=== PATIENT | male | born 1990 | race Hispanic/Latino ===

== ENCOUNTER 2020-08-17 15:02 | Emergency (ER) | payer SELFPAY ==
[2020-08-17 15:25] LABS: BASOPHILS % (AUTO) 0.4 % (0.0-5.0); EOSINOPHILS % (AUTO) 0.8 % (0.0-8.0); HEMATOCRIT 41.4 % (42-54); LYMPHOCYTES % (AUTO) 19.9 % (21.0-51.0); MEAN CORPUSCULAR HEMOGLOBIN 28.5 pg (27.0-33.0); MEAN CORPUSCULAR HGB CONC 34.3 g/dL (32.0-36.0); NEUTROPHILS % (AUTO) 65.5 % (40.0-77.0); PLATELET COUNT (AUTO) 248 K/uL (130-400); RED BLOOD CELL COUNT(AUTO) 4.99 MIL/uL (4.50-6.20); RED CELL DISTRIBUTION WIDTH 11.2 % (11.0-15.5); WHITE BLOOD COUNT (AUTO) 7.6 K/uL (4.8-10.8)
[2020-08-17 15:32] LABS: APPEARANCE,URINE Clear (CLEAR); BILIRUBIN,URINE Negative (NEGATIVE); COLOR,URINE Yellow (YELLOW); GLUCOSE, URINE (UA) TRACE mg/dL (NEGATIVE); KETONES,URINE Trace mg/dL (NEGATIVE); LEUKOCYTE ESTERASE ,URINE Negative (NEGATIVE); NITRATE,URINE Negative (NEGATIVE); OCCULT BLOOD,URINE Negative (NEGATIVE); PH,URINE 5.5 (5.0-8.0); PROTEIN,URINE POS 1+ mg/dL (NEGATIVE)
[2020-08-17 15:39] LABS: AMPHET/METH SCREEN,URINE NEGATIVE (NEGATIVE); BARBITURATE SCREEN, URINE NEGATIVE (NEGATIVE); BENZODIAZEPINES SCREEN,URINE POSITIVE (NEGATIVE); CANNABINOID SCREEN,URINE POSITIVE (NEGATIVE); COCAINE SCREEN,URINE POSITIVE (NEGATIVE); OPIATE SCREEN,URINE NEGATIVE (NEGATIVE); PHENCYCLIDINE SCREEN,URINE NEGATIVE (NEGATIVE)
[2020-08-17 15:39] LABS: CREATININE 1.1 mg/dL (0.5-1.5); POTASSIUM 3.9 mmol/L (3.5-5.1)
[2020-08-17 15:40] LABS: BACTERIA,URINE Rare /HPF (None Seen); RBC,URINE 0-1 /HPF (0-1); SQUAMOUS EPITHELIAL CELL,UR Rare /HPF (0-2); WBC,URINE 0-1 /HPF (0-1)
[2020-08-17 15:42] LABS: MUCUS,URINE Rare LPF (None Seen)
[2020-08-17 15:45] LABS: ALBUMIN 3.4 g/dL (3.5-5.0); BILIRUBIN,TOTAL 0.8 mg/dL (0.2-1.0); TOTAL PROTEIN, SERUM 6.9 g/dL (6.0-8.3)
[2020-08-17] MEDS ORDERED: SODIUM CHLORIDE 0.9% 1000ML 1,000 ML IV ONE (17:52)
[2020-08-17] MEDS ORDERED: LORAZEPAM 2 MG/ML 1 ML VIAL ONE (17:57)
== END 2020-08-17 19:37 | disposition home or self-care (01) ==
LOC: EDH 15:02
DX: R11.2 Nausea with vomiting, unspecified (principal); R10.84 Generalized abdominal pain; I10 Essential (primary) hypertension; Z71.51 Drug abuse counseling and surveillance of drug abuser
CPT/HCPCS: 36415; 74176; 80053; 80305; 81001; 83690; 85025; 96361 ×2; 96374; 99284; J2060; J7030

== ENCOUNTER 2020-09-29 17:08 | Inpatient (IN) | payer SELFPAY ==
[~2020-09-29] VITALS: Ht 190.5 cm; Wt 90.9 kg
[2020-09-29 17:10] VITALS: BP 141/84
[2020-09-29 17:57] LABS: BASOPHILS % (AUTO) 0.4 % (0.0-5.0); HEMATOCRIT 37.2 % (42-54); LYMPHOCYTES % (AUTO) 21.1 % (21.0-51.0); MEAN CORPUSCULAR HEMOGLOBIN 26.3 pg (27.0-33.0); MEAN CORPUSCULAR HGB CONC 33.3 g/dL (32.0-36.0); MONOCYTES % (AUTO) 11.8 % (3.0-13.0); NEUTROPHILS % (AUTO) 65.4 % (40.0-77.0); PLATELET COUNT (AUTO) 277 K/uL (130-400); RED BLOOD CELL COUNT(AUTO) 4.71 MIL/uL (4.50-6.20); RED CELL DISTRIBUTION WIDTH 12.3 % (11.0-15.5); WHITE BLOOD COUNT (AUTO) 7.1 K/uL (4.8-10.8)
[2020-09-29 18:09] LABS: CREATININE 1.1 mg/dL (0.5-1.5); POTASSIUM 3.5 mmol/L (3.5-5.1)
[2020-09-29 18:13] LABS: ALBUMIN 3.3 g/dL (3.5-5.0); BILIRUBIN,TOTAL 1.3 mg/dL (0.2-1.0)
[2020-09-29 18:27] LABS: APPEARANCE,URINE Clear (CLEAR); BILIRUBIN,URINE Negative (NEGATIVE); COLOR,URINE Dark Yellow (YELLOW); GLUCOSE, URINE (UA) Negative (NEGATIVE); KETONES,URINE Trace mg/dL (NEGATIVE); LEUKOCYTE ESTERASE ,URINE Trace (NEGATIVE); NITRATE,URINE Negative (NEGATIVE); OCCULT BLOOD,URINE Negative (NEGATIVE); PH,URINE 5.5 (5.0-8.0); PROTEIN,URINE POS 2+ mg/dL (NEGATIVE)
[2020-09-29 18:34] LABS: AMPHET/METH SCREEN,URINE NEGATIVE (NEGATIVE); BARBITURATE SCREEN, URINE NEGATIVE (NEGATIVE); BENZODIAZEPINES SCREEN,URINE NEGATIVE (NEGATIVE); CANNABINOID SCREEN,URINE POSITIVE (NEGATIVE); COCAINE SCREEN,URINE NEGATIVE (NEGATIVE); OPIATE SCREEN,URINE NEGATIVE (NEGATIVE); PHENCYCLIDINE SCREEN,URINE NEGATIVE (NEGATIVE)
[2020-09-29 18:35] LABS: BACTERIA,URINE Few /HPF (None Seen); MUCUS,URINE Moderate LPF (None Seen); RBC,URINE None Seen /HPF (0-1)
[2020-09-29] MEDS ORDERED: LORAZEPAM 2 MG/ML 1 ML VIAL IVP ONE (18:45)
[2020-09-29 18:53] LABS: CREATINE KINASE, TOTAL 28 U/L (21-232)
[2020-09-29] MEDS ORDERED: LORAZEPAM 2 MG/ML 1 ML VIAL ONE (18:53)
[2020-09-29 19:01] LABS: THYROID STIMULATING HORMONE < 0.01 uIU/mL (0.36-3.74)
[2020-09-29] MEDS ORDERED: 0.9%NACL 500ML 500 ML IV SCH (19:15)
[2020-09-29] MEDS ORDERED: METOPROLOL TARTRATE 1 MG/ML 5ML VIAL IV ONE (19:30)
[2020-09-29] MEDS ORDERED: LACTULOSE 20 GM/30 ML UDCUP PO PRN (21:45)
[2020-09-29] MEDS ORDERED: ONDANSETRON 4MG INJ IV PRN (21:45)
[2020-09-29] MEDS ORDERED: DIPHENHYDRAMINE HCL 25 MG CAPSULE PO PRN (21:45)
[2020-09-29] MEDS ORDERED: NITROGLYCERIN 0.4 MG SL TAB SL PRN (21:45)
[2020-09-29] MEDS ORDERED: HYDRALAZINE 20MG/ML VIAL IV PRN (21:45)
[2020-09-29] MEDS ORDERED: ACETAMINOPHEN 325 MG TAB PO PRN (21:45)
[2020-09-29] MEDS ORDERED: APAP-CODEINE 300/30MG TAB PO PRN ×2 (21:45)
[2020-09-29] MEDS ORDERED: GUAIFENESIN-DM 200/20 MG 10 ML PO PRN (21:45)
[2020-09-29 21:47] VITALS: BP 141/83
[2020-09-30] VITALS (7 sets, daily range): BP systolic 125–163; BP diastolic 74–99
[2020-09-30] MEDS ORDERED: SOLU-MEDROL 125MG VIAL IVP SCH (06:30)
[2020-09-30] MEDS: METHIMAZOLE 10 MG TAB PO SCH ×5 (06:30→21:37)
[2020-09-30] MEDS: PROPRANOLOL HCL 20 MG TAB PO SCH ×3 (07:03→21:37)
[2020-09-30] MEDS ORDERED: METOPROLOL TARTRATE 25 MG TAB PO SCH (09:00)
[2020-09-30] MEDS: FAMOTIDINE 20MG VIAL IV SCH ×2 (09:34→21:37)
[2020-09-30] MEDS: ENOXAPARIN SODIUM 40 MG/0.4 ML SYRINGE SQ SCH (09:35)
[2020-09-30] MEDS ORDERED: LOSA100T58 PO (10:17)
[2020-10-01 00:16] VITALS: BP 135/72
[2020-10-01 04:16] VITALS: BP 140/80
[2020-10-01] MEDS: PROPRANOLOL HCL 20 MG TAB PO SCH ×2 (06:19→14:42)
[2020-10-01 06:34] LABS: BASOPHILS % (AUTO) 0.1 % (0.0-5.0); EOSINOPHILS % (AUTO) 1.6 % (0.0-8.0); HEMATOCRIT 31.8 % (42-54); LYMPHOCYTES % (AUTO) 13.3 % (21.0-51.0); MEAN CORPUSCULAR HEMOGLOBIN 25.7 pg (27.0-33.0); MEAN CORPUSCULAR VOLUME 77.9 fL (79-99); MONOCYTES % (AUTO) 11.4 % (3.0-13.0); NEUTROPHILS % (AUTO) 73.3 % (40.0-77.0); PLATELET COUNT (AUTO) 218 K/uL (130-400); RED BLOOD CELL COUNT(AUTO) 4.08 MIL/uL (4.50-6.20); RED CELL DISTRIBUTION WIDTH 12.1 % (11.0-15.5)
[2020-10-01 07:03] LABS: ALANINE AMINOTRANSFERASE 67 U/L (12-78); ALBUMIN 3.1 g/dL (3.5-5.0); ASPARTATE AMINOTRANSFERASE 25 U/L (10-37); BILIRUBIN,TOTAL 0.7 mg/dL (0.2-1.0); CARBON DIOXIDE 26 mmol/L (21-32); CHLORIDE 106 mmol/L (101-111); CREATININE 0.8 mg/dL (0.5-1.5); GLOMERULAR FILTR. RATE CALC 120 mL/min (>60); GLUCOSE,RANDOM 115 mg/dL (70-105); POTASSIUM 3.9 mmol/L (3.5-5.1); SODIUM SERUM 141 mmol/L (136-145); TOTAL PROTEIN, SERUM 6.1 g/dL (6.0-8.3); UREA NITROGEN, BLOOD 25 mg/dL (7-18)
[2020-10-01 07:05] LABS: THYROID STIMULATING HORMONE < 0.01 uIU/mL (0.36-3.74)
[2020-10-01 07:56] VITALS: BP 150/92
[2020-10-01] MEDS ORDERED: PROP80TA4 PO (08:44)
[2020-10-01] MEDS ORDERED: METHI10 PO (08:44)
[2020-10-01] MEDS: FAMOTIDINE 20MG VIAL IV SCH (09:37)
[2020-10-01] MEDS: ENOXAPARIN SODIUM 40 MG/0.4 ML SYRINGE SQ SCH (09:37)
[2020-10-01] MEDS: METHIMAZOLE 10 MG TAB PO SCH ×2 (09:37→14:42)
[2020-10-01 11:40] VITALS: BP 139/88
[2020-10-01 16:00] VITALS: BP 129/82
== END 2020-10-01 18:00 | disposition home or self-care (01) | DRG 645 ==
LOC: EDH 17:08 → EDHIP 17:09 → 3CH 09-30 04:47
PROVIDERS: ADMIT Internal Medicine; ATTEND Internal Medicine
DX: E05.90 Thyrotoxicosis, unspecified without thyrotoxic crisis or storm (principal); I10 Essential (primary) hypertension; F12.90 Cannabis use, unspecified, uncomplicated; F41.9 Anxiety disorder, unspecified; K58.9 Irritable bowel syndrome, unspecified; Z79.899 Other long term (current) drug therapy
CPT/HCPCS: 36415; 76536; 80053; 80305; 81001; 82550; 83690; 84439; 84443; 84445; 84481; 85025; G0378; J1650; J2060; J2930; J3490

== ENCOUNTER 2024-09-26 09:38 | Emergency (ER) | payer BC ==
[~2024-09-26] VITALS: Ht 190.5 cm; Wt 90.7 kg
[~2024-09-26 09:38] MED LIST: METH-1037 PO; PROP80TA4 PO
--- NOTE | 2024-09-26 10:02 | NUR ---
BLOOD AND BLOOD CULTURES SENT OUT
[2024-09-26 10:16] LABS: BASOPHILS # (AUTO) 0.03 K/uL (0.00-0.20); BASOPHILS % (AUTO) 0.5 % (0.0-5.0); EOSINOPHILS # (AUTO) 0.02 K/uL (0.00-0.70); EOSINOPHILS % (AUTO) 0.3 % (0.0-8.0); HEMATOCRIT 48.5 % (42-54); IMMATURE GRANULOCYTE ABSOLUTE 0.02 K/uL (0-1); LYMPHOCYTES # (AUTO) 0.9 K/uL (1.0-4.8); LYMPHOCYTES % (AUTO) 14.6 % (21.0-51.0); MEAN CORPUSCULAR HEMOGLOBIN 29.4 pg (27.0-33.0); MEAN CORPUSCULAR HGB CONC 34.8 g/dL (32.0-36.0); MEAN CORPUSCULAR VOLUME 84.5 fL (79-99); MONOCYTES # (AUTO) 0.8 K/uL (0.1-1.0); MONOCYTES % (AUTO) 12.3 % (3.0-13.0); NEUTROPHILS # (AUTO) 4.6 K/uL (1.8-7.7); PLATELET COUNT (AUTO) 204 K/uL (130-400); RED BLOOD CELL COUNT(AUTO) 5.74 MIL/uL (4.50-6.20); RED CELL DISTRIBUTION WIDTH 12.3 % (11.0-15.5); WHITE BLOOD COUNT (AUTO) 6.4 K/uL (4.8-10.8)
[2024-09-26 10:18] LABS: APPEARANCE,URINE CLEAR (CLEAR); BILIRUBIN,URINE NEGATIVE (NEGATIVE); COLOR,URINE LIGHT-YELLOW (YELLOW); GLUCOSE, URINE (UA) NEGATIVE (NEGATIVE); KETONES,URINE NEGATIVE (NEGATIVE); LEUKOCYTE ESTERASE ,URINE NEGATIVE Leu/uL (NEGATIVE); NITRATE,URINE NEGATIVE (NEGATIVE); OCCULT BLOOD,URINE NEGATIVE (NEGATIVE); PROTEIN,URINE 10 mg/dL (NEGATIVE); UROBILINOGEN,URINE 0.2 mg/dL (0.2-1.0)
[2024-09-26] MEDS: acetaMINOPHEN 500 MG TABLET PO ONE (10:19)
[2024-09-26] MEDS: ketOROlac 15MG/ML VIAL (15MG/ML) IV ONE (10:19)
[2024-09-26] MEDS: 0.9%NACL 1000ML 2,721 ML IV ONE (10:23)
[2024-09-26 10:24] LABS: ADD UA MICROSCOPIC YES
[2024-09-26 10:29] LABS: CREATININE 1.3 mg/dL (0.5-1.3); POTASSIUM 3.2 mmol/L (3.5-5.1)
[2024-09-26 10:31] LABS: INR 0.97 (0.85-1.15); PROTHROMBIN TIME 10.3 SEC (9.6-11.6)
[2024-09-26 10:32] LABS: PARTIAL THROMBOPLASTIN TIME 30.1 SEC (26.3-35.5)
[2024-09-26 10:33] LABS: SQUAMOUS EPITHELIAL CELL,UR RARE /HPF (0-2)
[2024-09-26 10:43] LABS: MAGNESIUM 1.9 mg/dL (1.80-2.40); THYROID STIMULATING HORMONE 0.34 uIU/mL (0.36-3.74)
[2024-09-26 10:48] LABS: B-TYPE NATRIURETIC PEPTIDE 191 pg/mL (0-100)
[2024-09-26 11:07] LABS: COVID19 (SARS ANTIGEN RAPID) PRESUMPTIVE NEGATIVE (NEGATIVE); INFLUENZA TYPE A Negative For Type A (NEGATIVE); INFLUENZA TYPE B Negative For Type B (NEGATIVE)
[2024-09-26 11:19] VITALS: TEMP 98.5
--- NOTE | 2024-09-26 11:24 | HMCIMG ---
CHEST 1VW HISTORY: Cough COMPARISON: 03/03/2018 FINDINGS: A frontal projection of the chest was obtained. Left lung pulmonary infiltrates are seen. The heart is borderline enlarged. Degenerative changes are seen No evidence of aortic calcification is seen. IMPRESSION: 1. Left lung pulmonary infiltrates.
[2024-09-26] MEDS ORDERED: AZIT250T9 PO (11:39)
[2024-09-26] MEDS ORDERED: AMOX1TAB16 PO (11:39)
--- NOTE | 2024-09-26 11:40 | ERN ---
General Chief Complaint: Weakness Stated Complaint: WEAKNESS, N/V, ABD PAIN Time Seen by MD: 09:41 History of Present Illness Initial Comments 34-year-old male who presents for body aches chills fever cough and nausea for the last 72 hours. Patient reports he went to [facility] [place], afterwards he came home and started with a body aches. For the last three days he has had persistent symptoms. He has tried [id number] Tylenol Motrin. Denies headache. Denies vision changes. He reports feeling chills and co nsistent tremors. Nausea. Mild cough that is nonproductive. No sore throat. No vomiting or diarrhea. He does have a history of Graves disease, not currently medicated because he says has been under control recently. Otherwise no medical conditions, no sick contacts, no surgical history. Allergies: Coded Allergies: No Known Allergies (Unverified Allergy, Unknown, 08/17/20) Home Meds Active Scripts Propranolol HCl (Propranolol HCl) 80 Mg Tablet, 80 MG PO BID for 30 Days, #60 TAB Prov:ANGELO ROSENBAUM Jr., MD 10/01/20 Methimazole (Tapazole) 10 Mg Tab, 10 MG PO TID for 30 Days, #90 TAB Prov:ANGELO ROSENBAUM Jr., MD 10/01/20 Past Medical History Past Medical History: Hypertension, Hyperthyroid, IBS Medical History Other: GRAVES DISEASE Past Surgical History: None Social History Social History: Negative, Lives with family ROS Dictation CONSTITUTIONAL: Fever body aches EENT: No eye pain, no blurred vision, no tearing, no double vision, no ear pain, no ear discharge, no nose pain, no nasal congestion, no throat pain, no throat swelling, no mouth pain. RESPIRATORY: Cough CARDIOVASCULAR: No chest pain, no edema, no palpitations, no syncope. GASTROINTESTINAL/ABDOMINAL: No abdominal pain, no constipation, no diarrhea, no nausea, no vomiting. GENITOURINARY: No abnormal discharge, no dysuria, no frequent urination, no hematuria. No complaints of pain in the genitals. MUSCULOSKELETAL: No back pain, no gout, no joint pain, no joint swelling, no muscle pain, no muscle stiffness, no neck pain. INTEGUMENTARY: No change in color, no change in hair/nails, no dryness, no lesion, no lumps, no rash. NEUROLOGICAL/PSYCH: No anxiety, not depressed, no emotional problem, no headache, no numbness, no pre-existing deficit, no history of seizures, no tremors, no weakness. HEMATOLOGIC/LYMPHATIC: Not anemic, no history of blood clots, no apparent bleeding, no bruising, glands not swollen. All Systems Negative, Except as Noted. Physical Exam Physical Exam Dictation VITAL SIGNS: Reviewed. GENERAL APPEARANCE: Alert, oriented x3, no acute distress. HEAD AND FACE: Non-traumatic. EYES: PERRL, pink conjunctivas, eyelid no trauma, anterior chamber clear. EARS: Pinnas intact and no signs of trauma or erythema. Ear canals clear and no discharge. TMs no erythema. NOSE: No discharge, no bleeding. OROPHARYNX: Mouth normal, teeth no caries, tongue pink. Pharynx clear, no erythema. Tonsils no exudates, no abscesses noted. Mucous membrane moist. NECK: Supple, non-tender, no thyromegaly, no masses, no JVD, no bruits. BREAST: Deferred. CHEST: No tenderness, no crepitus, no paradoxical movement, no retractions. LUNGS: Clear, well-ventilated, symmetric, no rales, no wheezing, no rhonchi, no stridor, good breath sounds bilaterally. HEART: Regular rate, regular rhythm, no murmur, no gallops. VASCULAR: No peripheral edema. ABDOMEN: Soft, positive bowel sounds, nondistended, no guarding, nontender, no rebound, no masses no hepatomegaly, no splenomegaly, no Ellison's sign, no hernias. RECTAL: Deferred. GENITAL: Deferred. NEUROLOGICAL: Normal speech, gross motor function intact, gross sensory function intact. MUSCULOSKELETAL: Neck nontender, full range of motion, back nontender, full range of motion. EXTREMITIES: Nontender, full range of motion. SKIN: Color pink, dry, no turgor, no rash, no lacerations, no abrasions, no contusions. LYMPHATICS: Deferred. Results Laboratory and Microbiology Lab and Micro Result Laboratory Tests Test 09/26/24 10:00 09/26/24 10:04 09/26/24 10:05 White Blood Count 6.4 K/uL (4.8-10.8) Red Blood Count 5.74 MIL/uL (4.50-6.20) Hemoglobin 16.9 g/dL (14.0-18.0) Hematocrit 48.5 % (42-54) Mean Corpuscular Volume 84.5 fL (79-99) Mean Corpuscular Hemoglobin 29.4 pg (27.0-33.0) Mean Corpuscular Hemoglobin Concent 34.8 g/dL (32.0-36.0) Red Cell Distribution Width 12.3 % (11.0-15.5) Platelet Count 204 K/uL (130-400) Mean Platelet Volume 11.3 fL (7.5-10.5) H Immature Granulocyte % (Auto) 0.3 % (0-1) Neutrophils (%) (Auto) 72.0 % (40.0-77.0) Lymphocytes (%) (Auto) 14.6 % (21.0-51.0) L Monocytes (%) (Auto) 12.3 % (3.0-13.0) Eosinophils (%) (Auto) 0.3 % (0.0-8.0) Basophils (%) (Auto) 0.5 % (0.0-5.0) Neutrophils # (Auto) 4.6 K/uL (1.8-7.7) Lymphocytes # (Auto) 0.9 K/uL (1.0-4.8) L Monocytes # (Auto) 0.8 K/uL (0.1-1.0) Eosinophils # (Auto) 0.02 K/uL (0.00-0.70) Basophils # (Auto) 0.03 K/uL (0.00-0.20) Absolute Immature Granulocyte (auto 0.02 K/uL (0-1) Nucleated Red Blood Cells 0.0 % (0.0-0.19) Prothrombin Time 10.3 SEC (9.6-11.6) Prothromb Time International Ratio 0.97 (0.85-1.15) Activated Partial Thromboplast Time 30.1 SEC (26.3-35.5) Sodium Level 136 mmol/L (136-145) Potassium Level 3.2 mmol/L (3.5-5.1) L Chloride Level 96 mmol/L (101-111) L Carbon Dioxide Level 26 mmol/L (21-32) Blood Urea Nitrogen 10 mg/dL (7-18) Creatinine 1.3 mg/dL (0.5-1.3) Glomerular Filtration Rate Calc 73 mL/min (>90) Random Glucose 114 mg/dL (70-105) H Lactic Acid Level 2.5 mmol/L (0.8-2.5) Total Calcium 9.4 mg/dL (8.5-10.1) Magnesium Level 1.90 mg/dL (1.80-2.40) Total Creatine Kinase 74 U/L (21-232) # Troponin I High Sensitivity 32.6 ng/L (4-75) B-Type Natriuretic Peptide 191 pg/mL (0-100) H Thyroid Stimulating Hormone (TSH) 0.34 uIU/mL (0.36-3.74) #L Urine Color LIGHT-YELLOW (YELLOW) Urine Appearance CLEAR (CLEAR) Urine pH 8.0 (5.0-8.0) Urine Specific [place] 1.012 (1.001-1.031) Urine Protein 10 mg/dL (NEGATIVE) H Urine Glucose (UA) NEGATIVE mg/dL (NEGATIVE) Urine Ketones NEGATIVE mg/dL (NEGATIVE) Urine Occult Blood NEGATIVE (NEGATIVE) Urine Nitrate NEGATIVE (NEGATIVE) Urine Bilirubin NEGATIVE mg/dL (NEGATIVE) Urine Urobilinogen 0.2 mg/dL (0.2-1.0) Urine Leukocyte Esterase NEGATIVE Adam/uL Urine RBC 2-5 /HPF (0-1) H Urine WBC 6-10 /HPF (0-1) H Urine Squamous Epithelial Cells RARE /HPF (0-2) Urine Bacteria None /HPF (None Seen) Influenza Type A Antigen Negative For Type A Influenza Type B Antigen Negative For Type B SARS-CoV-2 Antigen (Rapid) PRESUMPTIVE NEGATIVE MDM CC: fever, cough, body aches Historian: patient Comorbidities: hyperthyroidism Limitations: none Ddx: PNA, viral URI, viral syndrome, thyroid storm, sepsis, etc. VS: initially febrile 101.3, borderline tachycardia 100, hypertension 174/124. All VS improved in ED with treatment, stable VS at the time of DC. Labs (independently interpreted by me): No leukocytosis anemia or shift. Coags stable. Electrolytes show potassium 3.2 low chloride otherwise unremarkable. Lactic acid 2.5. CK troponin stable. TSH 0.34, lower limits. Urinalysis unremarkable flu COVID negative. Chest x-ray per my independent interpretation shows a left lung infiltrate. Based on the patient's cough fever body aches I suspect me acquired pneumonia. No signs of thyroid storm or other life-threatening pathology. He has been respiratory distress and he is nontoxic in appearance. Treatment in ED: 30 cc/kg of fluid bolus, Rocephin, Toradol, Tylenol. Re-evaluation: Patient is stable. P.o. tolerant, nontoxic, stable vital signs, no respiratory distress. He does have a pneumonia, we will treat as a bacterial pneumonia with a antibiotic prescription. Per CURB65 no indication for admission at this time. Patient is stable. ED Course Orders Procedure Category Date Status Time 0.9%Nacl 1000ml (Ns PHA 09/26/24 In Process 1000ml) 10:00 Cardiac Panel LAB 09/26/24 Complete 10:00 Cbc With Differential LAB 09/26/24 Complete 10:00 Basic Metabolic Panel LAB 09/26/24 Complete 10:00 B-Type Natriuretic LAB 09/26/24 Complete Peptide 10:00 Magnesium LAB 09/26/24 Complete 10:00 Prothrombin Time With LAB 09/26/24 Complete INR 10:00 Partial LAB 09/26/24 Complete Thromboplastin Time 10:00 Urinalysis Profile LAB 09/26/24 Complete 10:00 Chest 1vw RAD 09/26/24 Resulted 10:00 Thyroid Stimulating LAB 09/26/24 Complete Hormone 10:00 Covid19 (Sars Antigen LAB 09/26/24 Complete Rapid) 10:00 Influenza Type A & B, LAB 09/26/24 Complete Rapid 10:00 Ketorolac PHA 09/26/24 Complete Tromethamine 15mg/Ml 10:30 Acetaminophen 500mg PHA 09/26/24 Complete Tab (Tylenol 500mg T 10:30 12 Lead Ekg Tracing- EKG 09/26/24 Logged Technical 10:14 Blood Cult GINO 09/26/24 In Process 10:14 Lactic Acid LAB 09/26/24 Complete 10:14 Culture Urine GINO 09/26/24 In Process 10:34 Ceftriaxone 1g Vial PHA 09/26/24 Logged (Rocephine 1g Inj) 12:00 Current Medications Medications (Trade) Dose Ordered Sig/Duong Route PRN Reason Start Time Stop Time Status Last Admin Dose Admin Acetaminophen (TYLenol 500MG TAB) 1,000 mg ONCE ONCE PO 09/26/24 10:30 09/26/24 10:31 DC 09/26/24 10:19 Ketorolac Tromethamine (toRADol) 15 mg ONCE ONCE IV 09/26/24 10:30 09/26/24 10:31 DC 09/26/24 10:19 Sodium Chloride 2,721 ml @ 907 mls/hr ONCE ONCE IV 09/26/24 10:00 09/26/24 12:59 09/26/24 10:23 Vital Signs Date Time Temp Pulse Resp B/P (MAP) Pulse Ox O2 Delivery O2 Flow Rate FiO2 09/26/24 10:19 99.5 09/26/24 09:55 99.5 85 26 151/110 100 Room Air* 0 21 09/26/24 09:39 101.3 100 20 174/124 100 Room Air DX & DISP Disposition: Discharge Departure Impression: Primary Impression: Community acquired pneumonia Condition: Stable Scripts Azithromycin (Azithromycin) 250 Mg Tablet 1 TAB PO AD for 5 Days, #6 TAB 0 Refills 2 the first day followed by 1 for days 2-5 Prov: TERESA PHILLIPS DO 09/26/24 Amoxicillin/Potassium Clav (Amox Tr-K Clv 875-125 mg Tab) 875 Mg-125 Mg Tablet 1 TAB PO BID for 10 Days, #20 TAB 0 Refills Prov: TERESA PHILLIPS DO 09/26/24 Additional Instructions: Your symptoms are most consistent with a community-acquired pneumonia. This is based on your symptoms and the chest x-ray. Your blood work (CBC with differential, metabolic panel, CK, lactic acid, troponin, coags, urinalysis) is unremarkable other than some mild inflammation and mild dehydration. You received IV fluids and IV antibiotics here in the ER. He will so he received Toradol and Tylenol. I have prescribed two different antibiotics: Augmentin and azithromycin. Take the entire course of both of these antibiotics as prescribed. I recommend you alternate Tylenol (1000 mg) and ibuprofen (600 mg) every 4 hours as needed for fever or discomfort. You could also try [id number] cough and cold medications as needed. Be sure to drink plenty of liquids. An electrolyte solution such as Gatorade as good choice. Try to eat highly nutritious foods while your body is healing. It try to rest as much as possible. Please follow up with the primary doctor in 48 hours for re-evaluation. Return to the emergency department if you have any concerning symptoms. Referrals: SELF,REFERRAL (PCP) TERESA PHILLIPS DO Sep 26, 2024 11:40
[2024-09-26] MEDS: cefTRIAXone 1G VIAL IVPB ONE (12:00)
[2024-09-26] MEDS: PoTASSium chloRIDE 20MEQ ER 20 MEQ ERTAB PO ONE (12:15)
[2024-09-26 13:40] VITALS: BP 154/107; PULSE 75; RESP 18; TEMP 98.3; O2SAT 99
--- NOTE | 2024-09-26 13:43 | NUR ---
DC PATIENT WAS DC'D BY DR PHILLIPS TODAY, I DC'D PATIENTS IV WITH CATH STILL INTACT AND APPLIED 2X2 GAUZE WITH COBAN I EXPLAINED TO PATIENT TO FOLLOW UP WITH PCP, PROVIDED INFO BASED ON DIAGNOSIS, AND NEW PRESCRIPTIONS AND HOW TO TAKE THEM PATIENTS BP STILL A LITTLE ELEVATED AT 154/107, 75HR, 99% O2 SAT RA, 18RR, AND 98.3 TEMP, PER DR PHILLIPS, OKAY TO DC PATIENT AMBULATED OUT OF ED, NO COMPLICATIONS
--- NOTE | 2024-09-27 08:51 | EKG ---
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
== END 2024-09-26 13:38 | disposition home or self-care (01) ==
LOC: EDH 09:38
DX: J18.9 Pneumonia, unspecified organism (principal); I10 Essential (primary) hypertension; Z79.899 Other long term (current) drug therapy; Z20.822 Contact with and (suspected) exposure to COVID-19
CPT/HCPCS: 99284; 96374; 96361; 71045; 96375; 87426; 84443; 82550; 83735; 84484; 80048; 83880; 85025; 85610; 85730; 87040 ×2; 87086; 87804 ×2; 83605; 81001; 36415; 93005; J1885; J7030; J0696